=== PATIENT | male | born 1970 | race Caucasian/White ===

== ENCOUNTER 2018-02-11 07:38 | Emergency (ER) | payer OTHER ==
[~2018-02-11] VITALS: Ht 182.9 cm; Wt 102.7 kg
[2018-02-11 07:41] VITALS: BP 122/73
[2018-02-11] MEDS ORDERED: NO HOME MEDS (07:44)
[2018-02-11] MEDS ORDERED: ACYC-1 PO (08:20)
[2018-02-11] MEDS ORDERED: DOXY100C43 PO (08:20)
== END 2018-02-11 08:36 | disposition home or self-care (01) ==
LOC: ER 07:39
DX: B00.9 Herpesviral infection, unspecified (principal)
CPT/HCPCS: 99283

== ENCOUNTER 2018-02-13 03:44 | Emergency (ER) | payer OTHER ==
[~2018-02-13] VITALS: Ht 182.9 cm; Wt 103.3 kg
[~2018-02-13 03:44] MED LIST: ACYC-1 PO; DOXY100C43 PO; NO HOME MEDS
[2018-02-13] MEDS ORDERED: DOCO2CRE TP (04:59)
[2018-02-13] MEDS ORDERED: ACET-812 PO (04:59)
[2018-02-13 05:02] VITALS: BP 126/77
== END 2018-02-13 05:08 | disposition home or self-care (01) ==
LOC: ER 03:44
DX: B00.9 Herpesviral infection, unspecified (principal)
CPT/HCPCS: 99283

== ENCOUNTER 2018-04-26 14:27 | Emergency (ER) | payer MEDICAID, OTHER ==
[~2018-04-26] VITALS: Ht 182.9 cm; Wt 108.9 kg
[~2018-04-26 14:27] MED LIST changes: +DOCO2CRE TP; -DOXY100C43 PO
[2018-04-26 15:19] LABS: BASOPHILS # (AUTO) 0.1 X10'3 (0-0.2); BASOPHILS % (AUTO) 0.4 % (0-1); EOSINOPHILS # (AUTO) 0.2 X10'3 (0-0.9); EOSINOPHILS % (AUTO) 1.1 % (0-6); HEMATOCRIT 40.8 % (42.0-52.0); HEMOGLOBIN 13.9 g/dl (14.0-17.9); LYMPHOCYTES # (AUTO) 10.4 X10'3 (1.1-4.8); LYMPHOCYTES % (AUTO) 59.4 % (21-51); MEAN CORPUSCULAR HEMOGLOBIN 29.6 PG (27.0-31.0); MEAN CORPUSCULAR HGB CONC 34.1 % (33.0-36.5); MEAN CORPUSCULAR VOLUME 86.8 FL (78-98); MEAN PLATELET VOLUME 7.8 FL (7.4-10.4); MONOCYTES # (AUTO) 1.7 X10'3 (0-0.9); MONOCYTES % (AUTO) 9.6 % (2-12); NEUTROPHILS # (AUTO) 5.2 X10'3 (1.8-7.7); NEUTROPHILS % (AUTO) 29.5 % (42-75); PLATELET COUNT 234 X10'3 (140-440); RED CELL DISTRIBUTION WIDTH 14.9 % (11.5-14.5); WHITE BLOOD COUNT 17.5 X10'3 (4.5-11.0)
[2018-04-26 15:50] LABS: ALANINE AMINOTRANSFERASE 100 U/L (12-78); ALBUMIN/GLOBULIN RATIO 0.4 (1.1-1.5); ALKALINE PHOSPHATASE 196 IU/L (46-116); ANION GAP 7 (8-16); ASPARTATE AMINO TRANSFERASE 385 U/L (10-37); BILIRUBIN,TOTAL 0.3 MG/DL (0.1-1.0); BLOOD UREA NITROGEN 16 MG/DL (7-18); CALCIUM 7.5 MG/DL (8.5-10.1); CHLORIDE 103 MMOL/L (99-107); CREATININE 1.14 MG/DL (0.60-1.10); POTASSIUM 3.7 MMOL/L (3.5-5.1); SODIUM 137 MMOL/L (135-145); TOTAL PROTEIN 6.5 G/DL (6.4-8.2); eGFR 69 ML/MIN
[2018-04-26] MEDS ORDERED: vancomycin/NS 1 GM ADD-VANTAGE 250 ML IV ONE (15:50)
[2018-04-26] MEDS ORDERED: piperacillin/tazo 3.375gm/50ml 50 ML IV ONE (15:50)
[2018-04-26] MEDS ORDERED: normal saline 1000ML IV soln IV ONE (15:50)
[2018-04-26 16:01] LABS: GLUCOSE 110 MG/DL (70-104)
[2018-04-26] MEDS ORDERED: methylPREDNISolone sod succ 125mg/2ml vial IV ONE (16:35)
[2018-04-26 16:46] LABS: PLATELET ESTIMATE NORMAL; SMUDGE CELLS 2+; TOTAL CELLS COUNTED 100
[2018-04-26] MEDS ORDERED: LEVO500T89 PO (17:30)
[2018-04-26] MEDS ORDERED: PRED20TA PO (17:30)
[2018-04-26 17:49] VITALS: BP 126/76
== END 2018-04-26 17:50 | disposition home or self-care (01) ==
LOC: ER 14:28
DX: J98.4 Other disorders of lung (principal); J96.90 Respiratory failure, unspecified, unspecified whether with hypoxia or hypercapnia; J43.2 Centrilobular emphysema; J18.1 Lobar pneumonia, unspecified organism; F10.10 Alcohol abuse, uncomplicated; F15.10 Other stimulant abuse, uncomplicated; F17.200 Nicotine dependence, unspecified, uncomplicated; Z79.899 Other long term (current) drug therapy; Y90.9 Presence of alcohol in blood, level not specified
CPT/HCPCS: 36415; 71045; 71250; 80053; 83605; 83880; 84484; 85025; 87040; 93005; 93970; 99285; J7030; J2543; J2930

== ENCOUNTER 2024-05-25 09:30 | Inpatient (IN) | payer MEDICAID, OTHER ==
[~2024-05-25] VITALS: Ht 182.9 cm; Wt 119.5 kg
[~2024-05-25 09:30] MED LIST changes: +epiNEPHrine 0.1mg/ml 10ml syringe ONE; +rocuronium 10mg/ml inj IV ONE
[2024-05-25 11:14] LABS: BASOPHILS # (AUTO) 0.1 X10'3 (0-0.2); BASOPHILS % (AUTO) 0.9 % (0-1); EOSINOPHILS # (AUTO) 0.1 X10'3 (0-0.9); EOSINOPHILS % (AUTO) 0.9 % (0-6); HEMATOCRIT 49.9 % (42.0-52.0); HEMOGLOBIN 16.4 g/dl (14.0-17.9); LYMPHOCYTES # (AUTO) 1.7 X10'3 (1.1-4.8); LYMPHOCYTES % (AUTO) 19.5 % (21-51); MEAN CORPUSCULAR HEMOGLOBIN 30.7 PG (27.0-31.0); MEAN CORPUSCULAR HGB CONC 32.8 g/dL (33.0-36.5); MEAN CORPUSCULAR VOLUME 93.8 FL (78-98); MEAN PLATELET VOLUME 8.9 FL (7.4-10.4); MONOCYTES # (AUTO) 0.8 X10'3 (0-0.9); MONOCYTES % (AUTO) 9.1 % (2-12); NEUTROPHILS # (AUTO) 6.2 X10'3 (1.8-7.7); NEUTROPHILS % (AUTO) 69.6 % (42-75); PLATELET COUNT 232 X10'3 (140-440); RED BLOOD COUNT 5.32 X10'6 (4.70-6.10); RED CELL DISTRIBUTION WIDTH 16.4 % (11.5-14.5); WHITE BLOOD COUNT 8.8 X10'3 (4.5-11.0)
[2024-05-25 12:08] LABS: ALANINE AMINOTRANSFERASE 28 U/L (12-78); ALBUMIN 3.4 G/DL (3.4-5.0); ALBUMIN/GLOBULIN RATIO 0.7 (1.1-1.5); ALKALINE PHOSPHATASE 232 IU/L (46-116); ANION GAP 10 (8-16); ASPARTATE AMINO TRANSFERASE 34 U/L (10-37); BILIRUBIN,TOTAL 1.6 MG/DL (0.1-1.0); BLOOD UREA NITROGEN 14 MG/DL (7-18); BUN/CREATININE RATIO 12.1 (10.0-20.0); CHLORIDE 102 MMOL/L (99-107); CREATININE 1.16 MG/DL (0.60-1.10); GLUCOSE 103 MG/DL (70-104); POTASSIUM 4.3 MMOL/L (3.5-5.1); SODIUM 141 MMOL/L (135-145); TOTAL CARBON DIOXIDE 28.7 MMOL/L (24-32); TOTAL PROTEIN 8.4 G/DL (6.4-8.2); eCRCL 81 ML/MIN; eGFR 66 ML/MIN
[2024-05-25 12:16] LABS: PRO BRAIN NATRIURETIC PEPTIDE 2688 PG/ML (0-125)
[2024-05-25] MEDS ORDERED: iohexol 350MG/ML 100ml bottle IV ONE (13:09)
[2024-05-25] MEDS: methylPREDNISolone sod succ 125mg/2ml vial IV ONE (13:42)
[2024-05-25] MEDS: ipratropium/albuterol 3ml nebule NEB ONE (14:28)
[2024-05-25 14:29] VITALS: PULSE 127; RESP 22; O2SAT 95
[2024-05-25 14:35] VITALS: PULSE 127; RESP 20; O2SAT 96
[2024-05-25] MEDS: diltiazem 5mg/ml 5ml inj. IV STA (14:47)
[2024-05-25] MEDS: diltiazem 5mg/ml 5ml inj. IV ONE (15:13)
[2024-05-25] MEDS ORDERED: potassium Cl 40MEQ/1/2NS 520ml 520 ML IV PRN (16:40)
[2024-05-25] MEDS ORDERED: acetaminophen 325mg tablet PO PRN (16:40)
[2024-05-25] MEDS ORDERED: magnesium sulf-water 4G/100mL 100 ML IV PRN (16:40)
[2024-05-25] MEDS ORDERED: magnesium hydroxide 30ml (MOM) UD suspension PO PRN (16:40)
[2024-05-25] MEDS ORDERED: magnesium sulf-water 2g/50mL 50 ML IV PRN (16:40)
[2024-05-25] MEDS ORDERED: mag hydrox/Alum hydrox/simeth 30ml oral suspension PO PRN (16:40)
[2024-05-25] MEDS ORDERED: ondansetron/PF 4mg/2ml inj IV PRN (16:40)
[2024-05-25] MEDS: nicotine 14mg patch - 24hr TD SCH (18:33)
[2024-05-25] MEDS: budesonide 0.5mg/2ml UD nebule IH SCH (19:19)
[2024-05-25] MEDS: albuterol 2.5 MG/3 ML nebule NEB PRN (19:20)
[2024-05-25 19:22] VITALS: PULSE 122; RESP 18; O2SAT 93
[2024-05-25 19:30] VITALS: PULSE 120; RESP 16
[2024-05-25 21:00] VITALS: BP 121/83; PULSE 117; RESP 22; TEMP 96.7; O2SAT 94
[2024-05-25] MEDS: K and/or MAG REPLACEMENT MC SCH (21:30)
[2024-05-25] MEDS: apixaban 5mg tablet PO SCH (21:53)
[2024-05-25] MEDS: docusate sod 100mg capsule PO SCH (21:53)
[2024-05-26] VITALS (27 sets, daily range): BP systolic 79–128; BP diastolic 49–92; PULSE 100–123; RESP 16–23; TEMP 97.6–99.9; O2SAT 87–100
[2024-05-26] MEDS: ipratropium/albuterol 3ml nebule NEB PRN (02:56)
[2024-05-26 08:00] LABS: BASOPHILS % (AUTO) 0.1 % (0-1); EOSINOPHILS % (AUTO) 0 % (0-6); HEMATOCRIT 52.4 % (42.0-52.0); HEMOGLOBIN 17.1 g/dl (14.0-17.9); LYMPHOCYTES # (AUTO) 0.9 X10'3 (1.1-4.8); LYMPHOCYTES % (AUTO) 10.1 % (21-51); MEAN CORPUSCULAR HEMOGLOBIN 30.6 PG (27.0-31.0); MEAN CORPUSCULAR HGB CONC 32.6 g/dL (33.0-36.5); MEAN CORPUSCULAR VOLUME 93.8 FL (78-98); MEAN PLATELET VOLUME 8.5 FL (7.4-10.4); MONOCYTES # (AUTO) 0.2 X10'3 (0-0.9); MONOCYTES % (AUTO) 2.5 % (2-12); NEUTROPHILS # (AUTO) 7.8 X10'3 (1.8-7.7); NEUTROPHILS % (AUTO) 87.3 % (42-75); PLATELET COUNT 224 X10'3 (140-440); RED BLOOD COUNT 5.59 X10'6 (4.70-6.10); RED CELL DISTRIBUTION WIDTH 16.5 % (11.5-14.5); WHITE BLOOD COUNT 8.9 X10'3 (4.5-11.0)
[2024-05-26 08:13] LABS: INR 1.3 INR; PROTHROMBIN TIME 13.5 SECONDS (9.0-12.0)
[2024-05-26 08:17] LABS: ALANINE AMINOTRANSFERASE 27 U/L (12-78); ALBUMIN 3.1 G/DL (3.4-5.0); ALBUMIN/GLOBULIN RATIO 0.7 (1.1-1.5); ALKALINE PHOSPHATASE 197 IU/L (46-116); ANION GAP 10 (8-16); ASPARTATE AMINO TRANSFERASE 23 U/L (10-37); BILIRUBIN,TOTAL 1.3 MG/DL (0.1-1.0); BLOOD UREA NITROGEN 18 MG/DL (7-18); BUN/CREATININE RATIO 15.5 (10.0-20.0); CHLORIDE 102 MMOL/L (99-107); CREATININE 1.16 MG/DL (0.60-1.10); GLUCOSE 141 MG/DL (70-104); MAGNESIUM 1.9 MG/DL (1.5-2.4); PHOSPHORUS 4.1 MG/DL (2.3-4.5); POTASSIUM 4.5 MMOL/L (3.5-5.1); SODIUM 139 MMOL/L (135-145); TOTAL CARBON DIOXIDE 27.1 MMOL/L (24-32); TOTAL PROTEIN 7.8 G/DL (6.4-8.2); eCRCL 81 ML/MIN; eGFR 66 ML/MIN
[2024-05-26] MEDS: metoprolol tartrate 50mg tablet PO ONE (09:07)
[2024-05-26] MEDS: metoprolol tartrate 1mg/ml inj IV ONE (10:54)
[2024-05-26] MEDS: amiodarone 150mg/dext, iso-os 100 ML IV ONE (13:46)
[2024-05-26] MEDS: DOPamine 400mg/D5W 250ml 250 ML IV SCH (13:54)
[2024-05-26] MEDS: amiodarone/D5 360MG/200ML BAG 200 ML IV SCH (13:57)
[2024-05-26] MEDS: carvedilol 6.25mg tablet PO SCH (20:00)
[2024-05-26] MEDS: sacubitril/valsartan 24mg-26mg tablet PO SCH (21:29)
[2024-05-27] VITALS (44 sets, daily range): BP systolic 54–133; BP diastolic 25–107; PULSE 62–122; RESP 15–55; TEMP 94.8–97.6; O2SAT 78–100
[2024-05-27] MEDS: furosemide 20 MG/2 ML vial IV ONE (00:25)
[2024-05-27] MEDS: morphine 2 MG/ML inj. syringe IV ONE (06:00)
[2024-05-27 07:08] LABS: BASOPHILS % (AUTO) 0 % (0-1); EOSINOPHILS % (AUTO) 0 % (0-6); HEMATOCRIT 54.6 % (42.0-52.0); HEMOGLOBIN 17.5 g/dl (14.0-17.9); LYMPHOCYTES % (AUTO) 8.6 % (21-51); MEAN CORPUSCULAR HEMOGLOBIN 30.7 PG (27.0-31.0); MEAN CORPUSCULAR VOLUME 95.9 FL (78-98); MEAN PLATELET VOLUME 8.7 FL (7.4-10.4); MONOCYTES # (AUTO) 1.7 X10'3 (0-0.9); MONOCYTES % (AUTO) 7.3 % (2-12); NEUTROPHILS # (AUTO) 19.9 X10'3 (1.8-7.7); NEUTROPHILS % (AUTO) 84.1 % (42-75); PLATELET COUNT 231 X10'3 (140-440); WHITE BLOOD COUNT 23.6 X10'3 (4.5-11.0)
[2024-05-27 07:20] LABS: INR 1.8 INR; PROTHROMBIN TIME 17.7 SECONDS (9.0-12.0)
[2024-05-27 07:28] LABS: ALANINE AMINOTRANSFERASE 44 U/L (12-78); ALBUMIN 2.9 G/DL (3.4-5.0); ALBUMIN/GLOBULIN RATIO 0.6 (1.1-1.5); ALKALINE PHOSPHATASE 189 IU/L (46-116); ANION GAP 12 (8-16); ASPARTATE AMINO TRANSFERASE 58 U/L (10-37); BILIRUBIN,TOTAL 1.4 MG/DL (0.1-1.0); BLOOD UREA NITROGEN 31 MG/DL (7-18); BUN/CREATININE RATIO 25.2 (10.0-20.0); CALCIUM 9.2 MG/DL (8.5-10.1); CHLORIDE 100 MMOL/L (99-107); CREATININE 1.23 MG/DL (0.60-1.10); GLUCOSE 96 MG/DL (70-104); MAGNESIUM 2.3 MG/DL (1.5-2.4); PHOSPHORUS 4.9 MG/DL (2.3-4.5); POTASSIUM 5.6 MMOL/L (3.5-5.1); PRO BRAIN NATRIURETIC PEPTIDE 2759 PG/ML (0-125); SODIUM 130 MMOL/L (135-145); TOTAL CARBON DIOXIDE 17.6 MMOL/L (24-32); TOTAL PROTEIN 7.6 G/DL (6.4-8.2); eCRCL 76 ML/MIN; eGFR 62 ML/MIN
[2024-05-27] MEDS: methylPREDNISolone sod succ/PF 40mg inj. IV SCH (08:05)
[2024-05-27] MEDS: DOBUTamine-DoBUTrex 500mg/D5W 250 ML IV SCH (08:05)
[2024-05-27] MEDS ORDERED: spironolactone 25 MG tablet PO SCH (08:30)
[2024-05-27] MEDS: DAPAGLIFLOZIN 10MG TABLET PO SCH (08:54)
[2024-05-27] MEDS: morphine 10mg/0.5ml (conc. morphine) oral syringe PO PRN (09:10)
[2024-05-27 10:02] LABS: ABG BASE EXCESS -6.2 mmol/L (-2.0-2.0); ABG HCO3 17.6 mmol/L (22.0-26.0); ABG OXYGEN SATURATION 91.8 % (94-97); ABG PCO2 (T) 30.1 mmHg (35.0-48.0); ABG PO2 (T) 63.1 mmHg (75.0-100.0); ALLEN'S TEST POSITIVE; FCOHb 0.1 % (0.0-3.9); FHHb 8.2 % (0.0-5.0); FLOW 2 L/min; FMetHb 0.1 % (0.0-1.5); FO2Hb 91.6 % (94-97); MODE NASAL CANNULA; PATIENT TEMPERATURE 36.1; TOTAL HEMOGLOBIN 18.8 G/dl (14.0-17.9)
[2024-05-27] MEDS ORDERED: furosemide 40mg/4ml inj IV STA (10:33)
[2024-05-27] MEDS: furosemide 40mg/4ml inj IV ONE ×2 (10:42→11:17)
[2024-05-27] MEDS: LORazepam 1 MG tablet PO PRN (10:42)
[2024-05-27] MEDS: HYDROmorphone 1 mg/ml syringe IV ONE ×2 (11:54→12:48)
[2024-05-27] MEDS ORDERED: DEXMEDETOMIDINE IN 0.9 % NACL 50 ML IV SCH (12:15)
[2024-05-27 12:54] LABS: BASOPHILS % (AUTO) 0.2 % (0-1); EOSINOPHILS % (AUTO) 0.1 % (0-6); HEMATOCRIT 56.1 % (42.0-52.0); LYMPHOCYTES # (AUTO) 2.2 X10'3 (1.1-4.8); LYMPHOCYTES % (AUTO) 10.4 % (21-51); MEAN CORPUSCULAR HEMOGLOBIN 30.7 PG (27.0-31.0); MEAN CORPUSCULAR HGB CONC 32.4 g/dL (33.0-36.5); MEAN CORPUSCULAR VOLUME 94.8 FL (78-98); MEAN PLATELET VOLUME 8.8 FL (7.4-10.4); MONOCYTES # (AUTO) 0.9 X10'3 (0-0.9); MONOCYTES % (AUTO) 4.2 % (2-12); NEUTROPHILS # (AUTO) 18.1 X10'3 (1.8-7.7); NEUTROPHILS % (AUTO) 85.1 % (42-75); PLATELET COUNT 255 X10'3 (140-440); RED BLOOD COUNT 5.92 X10'6 (4.70-6.10); RED CELL DISTRIBUTION WIDTH 17.2 % (11.5-14.5); WHITE BLOOD COUNT 21.2 X10'3 (4.5-11.0)
[2024-05-27 12:55] LABS: HEMOGLOBIN 18.2 g/dl (14.0-17.9)
[2024-05-27 12:59] LABS: ABG BASE EXCESS -8.6 mmol/L (-2.0-2.0); ABG HCO3 17.3 mmol/L (22.0-26.0); ABG OXYGEN SATURATION 99.6 % (94-97); ABG PCO2 (T) 34.6 mmHg (35.0-48.0); ABG PH (T) 7.307 (7.340-7.440); ABG PO2 (T) 222.8 mmHg (75.0-100.0); ALLEN'S TEST POSITIVE; FCOHb 0.3 % (0.0-3.9); FHHb 0.4 % (0.0-5.0); FMetHb 0.4 % (0.0-1.5); FO2Hb 98.9 % (94-97); MODE MASK - BIPAP; PATIENT TEMPERATURE 34.9; RESPIRATORY RATE 16 b/min; TIDAL VOLUME 365 mL; TOTAL HEMOGLOBIN 19.9 G/dl (14.0-17.9)
[2024-05-27] MEDS: dexmedetomidin/NS 400mcg/100ml 100 ML IV SCH (13:05)
[2024-05-27] MEDS: ringers solution, lacted 1,000 ML IV ONE (13:39)
[2024-05-27 13:44] LABS: ANISOCYTOSIS 1+; PLATELET ESTIMATE NORMAL; TOTAL CELLS COUNTED 100
[2024-05-27 13:46] LABS: INR 2.3 INR; PROTHROMBIN TIME 22.9 SECONDS (9.0-12.0)
[2024-05-27] MEDS: NORepinephrine 8mg/ 250ml NS 250 ML IV ONE (14:12)
[2024-05-27] MEDS: fentaNYL/PF 50MCG/1 ML 2ML syringe ONE (14:29)
[2024-05-27] MEDS: fentaNYL/PF 50MCG/1 ML 2ML syringe IV ONE (14:30)
[2024-05-27] MEDS ORDERED: vasopressin inj. 40 UNIT in dextrose 5%-water 50ml 38 ML IV SCH (15:10)
[2024-05-27] MEDS: vasopressin inj. 40 UNIT in normal saline 50ml IV soln 38 ML IV SCH (15:38)
[2024-05-27 15:42] LABS: ALANINE AMINOTRANSFERASE 121 U/L (12-78); ALBUMIN 2.8 G/DL (3.4-5.0); ALBUMIN/GLOBULIN RATIO 0.7 (1.1-1.5); ALKALINE PHOSPHATASE 179 IU/L (46-116); ANION GAP 11 (8-16); ASPARTATE AMINO TRANSFERASE 227 U/L (10-37); BILIRUBIN,TOTAL 2.1 MG/DL (0.1-1.0); BLOOD UREA NITROGEN 36 MG/DL (7-18); BUN/CREATININE RATIO 20.5 (10.0-20.0); CALCIUM 8.7 MG/DL (8.5-10.1); CHLORIDE 100 MMOL/L (99-107); CREATININE 1.76 MG/DL (0.60-1.10); PHOSPHORUS 7.1 MG/DL (2.3-4.5); SODIUM 135 MMOL/L (135-145); TOTAL CARBON DIOXIDE 23.8 MMOL/L (24-32); TOTAL PROTEIN 6.8 G/DL (6.4-8.2); eCRCL 53 ML/MIN; eGFR 41 ML/MIN
[2024-05-27 15:44] LABS: GLUCOSE 41 MG/DL (70-104); POTASSIUM 7.1 MMOL/L (3.5-5.1)
[2024-05-27 15:57] LABS: ABG BASE EXCESS -4.9 mmol/L (-2.0-2.0); ABG HCO3 21.5 mmol/L (22.0-26.0); ABG OXYGEN SATURATION 97.9 % (94-97); ABG PCO2 (T) 40.5 mmHg (35.0-48.0); ABG PH (T) 7.332 (7.340-7.440); FCOHb 0.3 % (0.0-3.9); FHHb 2.1 % (0.0-5.0); FMetHb 0.3 % (0.0-1.5); FO2Hb 97.3 % (94-97); MODE VENT - AC; PEEP 5 cm H2O; RESPIRATORY RATE 16 b/min; TIDAL VOLUME 500 mL; TOTAL HEMOGLOBIN 18.7 G/dl (14.0-17.9)
[2024-05-27] MEDS ORDERED: fentaNYL/PF 50MCG/1 ML 2ML syringe IV PRN (16:00)
[2024-05-27] MEDS: FENTANYL-0.9 % NACL/PF 100 ML IV SCH (16:00)
[2024-05-27] MEDS: sodium bicarbonate (8.4%) 1 mEq/ml syringe IV ONE (16:05)
[2024-05-27] MEDS: sodium bicarbonate 1meq/ml inj 150 ML in dextrose 5%-water 1,000 ML IV SCH (16:05)
[2024-05-27] MEDS: epiNEPHrine 0.1mg/ml 10ml syringe ONE (16:06)
[2024-05-27] MEDS: NORepinephrine 8mg/ 250ml NS 250 ML IV SCH (16:11)
[2024-05-27] MEDS: sodium bicarbonate (8.4%) 1 mEq/ml syringe ONE (16:12)
[2024-05-27] MEDS: dextrose 50%-water 50ml dispensing syringe IV ONE ×2 (16:13→16:31)
[2024-05-27] MEDS: insulin regular, human U-100 3ml vial - multi-dose IV STA (16:30)
[2024-05-27] MEDS: SODIUM ZIRCONIUM CYCLOSILICATE 10 GM POWD.PACK OGT STA (16:30)
[2024-05-27] MEDS: propofol 1000mg/100ml bottle 100 ML IV SCH (16:36)
[2024-05-27] MEDS ORDERED: vancomycin/NS 1 GM ADD-VANTAGE 250 ML IV ONE (17:10)
[2024-05-27] MEDS ORDERED: vancomycin 1,750 MG in NS 350ml IV soln IV ONE (17:25)
[2024-05-27 17:27] LABS: ALBUMIN 2.4 G/DL (3.4-5.0); ANION GAP 12 (8-16); BLOOD UREA NITROGEN 38 MG/DL (7-18); BUN/CREATININE RATIO 20.9 (10.0-20.0); CHLORIDE 100 MMOL/L (99-107); CREATININE 1.82 MG/DL (0.60-1.10); GLUCOSE 244 MG/DL (70-104); SODIUM 136 MMOL/L (135-145); TOTAL CARBON DIOXIDE 24.2 MMOL/L (24-32); eCRCL 52 ML/MIN; eGFR 39 ML/MIN
[2024-05-27] MEDS: piperacillin/tazo 3.375gm/50ml 50 ML IV SCH (17:40)
[2024-05-27] MEDS: pantoprazole 40 MG vial IV SCH (17:40)
[2024-05-27] MEDS ORDERED: NORepinephrine 32mg/250mL bag 250 ML IV SCH (19:00)
[2024-05-27] MEDS: vancomycin 1,750 MG in NS 350ml IV soln IV ONE (19:16)
[2024-05-27] MEDS: furosemide inj 100 MG in normal saline 100ml IV soln 90 ML IV SCH (19:17)
[2024-05-27] MEDS: NORepinephrine 32 MG in normal saline 250ml IV soln 218 ML IV SCH (20:55)
[2024-05-27 22:49] LABS: ALBUMIN 2.7 G/DL (3.4-5.0); ANION GAP 10 (8-16); BLOOD UREA NITROGEN 39 MG/DL (7-18); BUN/CREATININE RATIO 22.9 (10.0-20.0); CALCIUM 8.4 MG/DL (8.5-10.1); CHLORIDE 99 MMOL/L (99-107); GLUCOSE 189 MG/DL (70-104); MAGNESIUM 1.6 MG/DL (1.5-2.4); PHOSPHORUS 5.4 MG/DL (2.3-4.5); SODIUM 136 MMOL/L (135-145); TOTAL CARBON DIOXIDE 27.2 MMOL/L (24-32); eCRCL 55 ML/MIN; eGFR 42 ML/MIN
[2024-05-27] MEDS ORDERED: glucagon, human recombinant 1mg kit SUBCUT PRN (22:55)
[2024-05-27] MEDS ORDERED: DEXTROSE 15 GM of carb/4 tabs (each vial/BOTTLE has 4 tablets) PO PRN ×2 (22:55)
[2024-05-27] MEDS ORDERED: dextrose 50%-water 50ml dispensing syringe IV PRN ×2 (22:55)
[2024-05-28] VITALS (37 sets, daily range): BP systolic 87–123; BP diastolic 59–85; PULSE 110–124; RESP 16–30; O2SAT 89–96
[2024-05-28] MEDS: INSULIN LISPRO 100 UNIT/ML INSULN.PEN MULTI-DOSE SQ SCH (02:01)
[2024-05-28 02:20] LABS: BASOPHILS % (AUTO) 0.1 % (0-1); EOSINOPHILS % (AUTO) 0 % (0-6); HEMATOCRIT 50.6 % (42.0-52.0); HEMOGLOBIN 16.2 g/dl (14.0-17.9); LYMPHOCYTES # (AUTO) 0.9 X10'3 (1.1-4.8); LYMPHOCYTES % (AUTO) 4.6 % (21-51); MEAN CORPUSCULAR HEMOGLOBIN 29.8 PG (27.0-31.0); MEAN CORPUSCULAR HGB CONC 32.1 g/dL (33.0-36.5); MEAN CORPUSCULAR VOLUME 92.9 FL (78-98); MONOCYTES % (AUTO) 4.9 % (2-12); NEUTROPHILS # (AUTO) 18.7 X10'3 (1.8-7.7); NEUTROPHILS % (AUTO) 90.4 % (42-75); PLATELET COUNT 259 X10'3 (140-440); RED BLOOD COUNT 5.44 X10'6 (4.70-6.10); RED CELL DISTRIBUTION WIDTH 16.5 % (11.5-14.5); WHITE BLOOD COUNT 20.7 X10'3 (4.5-11.0)
[2024-05-28 02:56] LABS: ALANINE AMINOTRANSFERASE 726 U/L (12-78); ALBUMIN 2.6 G/DL (3.4-5.0); ALBUMIN/GLOBULIN RATIO 0.7 (1.1-1.5); ALKALINE PHOSPHATASE 159 IU/L (46-116); ANION GAP 10 (8-16); BILIRUBIN,TOTAL 1.9 MG/DL (0.1-1.0); BLOOD UREA NITROGEN 39 MG/DL (7-18); BUN/CREATININE RATIO 22.3 (10.0-20.0); CALCIUM 8.4 MG/DL (8.5-10.1); CHLORIDE 99 MMOL/L (99-107); CREATININE 1.75 MG/DL (0.60-1.10); GLUCOSE 175 MG/DL (70-104); MAGNESIUM 1.7 MG/DL (1.5-2.4); PHOSPHORUS 5.1 MG/DL (2.3-4.5); SODIUM 137 MMOL/L (135-145); TOTAL CARBON DIOXIDE 28.2 MMOL/L (24-32); TOTAL PROTEIN 6.3 G/DL (6.4-8.2); TRIGLYCERIDES 76 MG/DL (20-135); eCRCL 54 ML/MIN; eGFR 41 ML/MIN
[2024-05-28 02:58] LABS: ASPARTATE AMINO TRANSFERASE 1518 U/L (10-37)
[2024-05-28 03:13] LABS: ABG BASE EXCESS 4.7 mmol/L (-2.0-2.0); ABG HCO3 29.1 mmol/L (22.0-26.0); ABG OXYGEN SATURATION 93.7 % (94-97); ABG PCO2 (T) 43.3 mmHg (35.0-48.0); ABG PH (T) 7.448 (7.340-7.440); FCOHb 0.5 % (0.0-3.9); FHHb 6.3 % (0.0-5.0); FO2Hb 93.2 % (94-97); MODE ac/prvc; PATIENT TEMPERATURE 37.7; PEEP 5 cm H2O; RESPIRATORY RATE 16 b/min; TIDAL VOLUME 500 mL; TOTAL HEMOGLOBIN 17.6 G/dl (14.0-17.9)
[2024-05-28] MEDS: vancomycin/NS 1 GM ADD-VANTAGE 250 ML IV SCH (05:22)
[2024-05-28 05:52] LABS: ALBUMIN 2.7 G/DL (3.4-5.0); ANION GAP 11 (8-16); BLOOD UREA NITROGEN 39 MG/DL (7-18); BUN/CREATININE RATIO 22.8 (10.0-20.0); CALCIUM 8.4 MG/DL (8.5-10.1); CHLORIDE 98 MMOL/L (99-107); CREATININE 1.71 MG/DL (0.60-1.10); GLUCOSE 162 MG/DL (70-104); MAGNESIUM 1.7 MG/DL (1.5-2.4); PHOSPHORUS 5.2 MG/DL (2.3-4.5); POTASSIUM 4.8 MMOL/L (3.5-5.1); SODIUM 137 MMOL/L (135-145); TOTAL CARBON DIOXIDE 28.5 MMOL/L (24-32); eCRCL 55 ML/MIN; eGFR 42 ML/MIN
[2024-05-28] MEDS ORDERED: NORepinephrine 8mg/ 250ml NS 250 ML IV SCH (06:45)
[2024-05-28] MEDS ORDERED: NORepinephrine 32mg/250mL bag 250 ML IV SCH (06:50)
[2024-05-28] MEDS ORDERED: INSULIN LISPRO 100 UNIT/ML INSULN.PEN MULTI-DOSE SQ SCH (07:00)
[2024-05-28] MEDS: docusate sodium 100mg/10ml UD cup PO SCH (07:56)
[2024-05-28] MEDS: NORepinephrine 32 MG in normal saline 250ml IV soln 218 ML IV SCH (10:18)
[2024-05-28] MEDS: DOBUTamine-DoBUTrex 500mg/D5W 250 ML IV SCH (10:18)
[2024-05-28] MEDS ORDERED: acetaminophen 325mg tablet OGT PRN (10:21)
[2024-05-28] MEDS ORDERED: apixaban 5mg tablet OGT SCH (10:22)
[2024-05-28] MEDS ORDERED: DEXTROSE 15 GM of carb/4 tabs (each vial/BOTTLE has 4 tablets) OGT PRN ×2 (10:22)
[2024-05-28] MEDS ORDERED: magnesium hydroxide 30ml (MOM) UD suspension OGT PRN (10:26)
[2024-05-28] MEDS ORDERED: LORazepam 1 MG tablet OGT PRN (10:26)
[2024-05-28] MEDS ORDERED: mag hydrox/Alum hydrox/simeth 30ml oral suspension OGT PRN (10:26)
[2024-05-28] MEDS ORDERED: morphine 10mg/0.5ml (conc. morphine) oral syringe OGT PRN (10:27)
[2024-05-28 10:28] LABS: BILIRUBIN,URINE NEGATIVE (Neg); CLARITY,URINE SLIGHTLY CLOUDY (Clear); COLOR,URINE YELLOW (Yellow); GLUCOSE, URINE 100 mg/dl (Neg); KETONES,URINE NEGATIVE (Neg); LEUKOCYTE ESTERASE ,URINE NEGATIVE (Neg); NITRITES, URINE NEGATIVE (Neg); OCCULT BLOOD,URINE MODERATE (Neg); PH,URINE 5.5 (4.8-8.0); PROTEIN,URINE NEGATIVE (Neg); UROBILINOGEN,URINE 0.2 E.U/dL (0.2-1.0)
[2024-05-28 10:30] LABS: UA COLLECTION TYPE NON-SPECIFIED
[2024-05-28 10:34] LABS: RBC,URINE 20-50 /HPF (0-2); WBC,URINE 0-4 /HPF (0-4)
[2024-05-28 10:35] LABS: BACTERIA,URINE FEW /HPF (Neg); SQUAMOUS EPITHELIAL CELL,UR FEW /LPF (FEW)
[2024-05-28 10:38] LABS: ALBUMIN 2.7 G/DL (3.4-5.0); ANION GAP 9 (8-16); BLOOD UREA NITROGEN 43 MG/DL (7-18); BUN/CREATININE RATIO 23.9 (10.0-20.0); CALCIUM 8.4 MG/DL (8.5-10.1); CHLORIDE 98 MMOL/L (99-107); GLUCOSE 167 MG/DL (70-104); MAGNESIUM 1.7 MG/DL (1.5-2.4); POTASSIUM 4.6 MMOL/L (3.5-5.1); SODIUM 136 MMOL/L (135-145); TOTAL CARBON DIOXIDE 29.1 MMOL/L (24-32); eCRCL 52 ML/MIN; eGFR 40 ML/MIN
[2024-05-28 10:56] LABS: URINE AMPHETAMINE SCREEN NEGATIVE (Neg); URINE BARBITUATE SCREEN NEGATIVE (Neg); URINE BENZODIAZEPINES SCREEN NEGATIVE (Neg); URINE CANNABINOID SCREEN POSITIVE (Neg); URINE COCAINE SCREEN NEGATIVE (Neg); URINE METHADONE SCREEN NEGATIVE (Neg); URINE OPIATE SCREEN POSITIVE (Neg); URINE PHENCYCLIDINE SCREEN NEGATIVE (Neg)
[2024-05-28 11:14] LABS: PHOSPHORUS 5.8 MG/DL (2.3-4.5)
[2024-05-28 14:12] LABS: PREALBUMIN 13.2 MG/DL (19-36)
[2024-05-28] MEDS: carvedilol 6.25mg tablet OGT SCH (20:00)
[2024-05-28] MEDS: mineral oil/petrolatum ophthal oint EACHEYE SCH (20:55)
[2024-05-28] MEDS: docusate sodium 100mg/10ml UD cup OGT SCH (20:55)
[2024-05-29] VITALS (26 sets, daily range): BP systolic 46–104; BP diastolic 28–72; PULSE 26–121; RESP 8–22; O2SAT 72–93
[2024-05-29] MEDS: insulin regular, human U-100 3ml vial - multi-dose SQ SCH (02:19)
[2024-05-29 03:10] LABS: ABG BASE EXCESS 6.1 mmol/L (-2.0-2.0); ABG HCO3 31.1 mmol/L (22.0-26.0); ABG OXYGEN SATURATION 91.4 % (94-97); ABG PH (T) 7.449 (7.340-7.440); FCOHb 0.5 % (0.0-3.9); FHHb 8.5 % (0.0-5.0); FMetHb 0.1 % (0.0-1.5); FO2Hb 90.9 % (94-97); MODE ac/prvc; PATIENT TEMPERATURE 37.4; PEEP 8 cm H2O; RESPIRATORY RATE 16 b/min; TIDAL VOLUME 500 mL; TOTAL HEMOGLOBIN 17.5 G/dl (14.0-17.9)
[2024-05-29 04:03] LABS: BASOPHILS % (AUTO) 0.2 % (0-1); EOSINOPHILS % (AUTO) 0 % (0-6); HEMATOCRIT 50.8 % (42.0-52.0); HEMOGLOBIN 16.2 g/dl (14.0-17.9); LYMPHOCYTES # (AUTO) 1.2 X10'3 (1.1-4.8); LYMPHOCYTES % (AUTO) 5.8 % (21-51); MEAN CORPUSCULAR HEMOGLOBIN 29.6 PG (27.0-31.0); MEAN CORPUSCULAR VOLUME 92.6 FL (78-98); MEAN PLATELET VOLUME 8.8 FL (7.4-10.4); MONOCYTES # (AUTO) 1.2 X10'3 (0-0.9); MONOCYTES % (AUTO) 5.8 % (2-12); NEUTROPHILS # (AUTO) 17.7 X10'3 (1.8-7.7); NEUTROPHILS % (AUTO) 88.2 % (42-75); PLATELET COUNT 243 X10'3 (140-440); RED BLOOD COUNT 5.48 X10'6 (4.70-6.10); RED CELL DISTRIBUTION WIDTH 16.4 % (11.5-14.5); WHITE BLOOD COUNT 20.1 X10'3 (4.5-11.0)
[2024-05-29 04:06] LABS: INR 1.7 INR; PROTHROMBIN TIME 17.5 SECONDS (9.0-12.0)
[2024-05-29 04:10] LABS: ALANINE AMINOTRANSFERASE 615 U/L (12-78); ALBUMIN 2.7 G/DL (3.4-5.0); ALBUMIN/GLOBULIN RATIO 0.7 (1.1-1.5); ALKALINE PHOSPHATASE 150 IU/L (46-116); ANION GAP 7 (8-16); ASPARTATE AMINO TRANSFERASE 554 U/L (10-37); BILIRUBIN,TOTAL 1.6 MG/DL (0.1-1.0); BLOOD UREA NITROGEN 53 MG/DL (7-18); BUN/CREATININE RATIO 27.6 (10.0-20.0); CALCIUM 8.2 MG/DL (8.5-10.1); CHLORIDE 98 MMOL/L (99-107); CREATININE 1.92 MG/DL (0.60-1.10); GLUCOSE 170 MG/DL (70-104); MAGNESIUM 1.9 MG/DL (1.5-2.4); PHOSPHORUS 5.7 MG/DL (2.3-4.5); POTASSIUM 4.4 MMOL/L (3.5-5.1); SODIUM 136 MMOL/L (135-145); TOTAL CARBON DIOXIDE 30.7 MMOL/L (24-32); TOTAL PROTEIN 6.6 G/DL (6.4-8.2); eCRCL 49 ML/MIN; eGFR 37 ML/MIN
[2024-05-29] MEDS: apixaban 5mg tablet PO SCH (07:12)
[2024-05-29] MEDS: amiodarone 200mg tablet PO SCH (07:12)
[2024-05-29] MEDS: furosemide 40mg/4ml inj IV SCH (07:12)
[2024-05-29 07:25] LABS: PO2 MIXED VENOUS (TEMP COR) 33.2 mmHg (35-46)
[2024-05-29] MEDS: COMMUNICATION ORDER 1 EA MISC MC ONE (08:22)
[2024-05-29] MEDS ORDERED: apixaban 5mg tablet OGT SCH (13:46)
[2024-05-29] MEDS ORDERED: amiodarone 200mg tablet OGT SCH (13:46)
[2024-05-29] MEDS: morphine 10mg/ml inj. IV PRN (14:36)
[2024-05-29] MEDS ORDERED: morphine 10mg/ml inj. IV PRN (15:50)
[2024-05-29] MEDS: LORazepam 2 mg/ml vial IV PRN (15:50)
== END 2024-05-29 19:13 | DRG 720 ==
LOC: ER 09:32 → UNDOADMIN 17:14 → ED HOLD 17:14 → PCU 3S 20:53 → ED HOLD 20:53 → PCU 3S 05-27 12:05 → CICU 2S 05-27 12:05
PROVIDERS: ADMIT Family Medicine; ATTEND Family Medicine
PROC: B32T1ZZ Computerized Tomography (CT Scan) of Left Pulmonary Artery using Low Osmolar Contrast (ICD-10-PCS; principal; 2024-05-25)
PROC: B3201ZZ Computerized Tomography (CT Scan) of Thoracic Aorta using Low Osmolar Contrast (ICD-10-PCS; 2024-05-25)
PROC: B32S1ZZ Computerized Tomography (CT Scan) of Right Pulmonary Artery using Low Osmolar Contrast (ICD-10-PCS; 2024-05-25)
PROC: 5A09357 Assistance with Respiratory Ventilation, Less than 24 Consecutive Hours, Continuous Positive Airway Pressure (ICD-10-PCS; 2024-05-27)
PROC: 0BH17EZ Insertion of Endotracheal Airway into Trachea, Via Natural or Artificial Opening (ICD-10-PCS; 2024-05-27)
PROC: 5A1945Z Respiratory Ventilation, 24-96 Consecutive Hours (ICD-10-PCS; 2024-05-27)
PROC: 02HV33Z Insertion of Infusion Device into Superior Vena Cava, Percutaneous Approach (ICD-10-PCS; 2024-05-27)
PROC: B548ZZA Ultrasonography of Superior Vena Cava, Guidance (ICD-10-PCS; 2024-05-27)
PROC: 04HY32Z Insertion of Monitoring Device into Lower Artery, Percutaneous Approach (ICD-10-PCS; 2024-05-27)
DX: A41.9 Sepsis, unspecified organism (principal); N17.0 Acute kidney failure with tubular necrosis; J96.21 Acute and chronic respiratory failure with hypoxia; R57.0 Cardiogenic shock; R65.21 Severe sepsis with septic shock; I50.23 Acute on chronic systolic (congestive) heart failure; D68.9 Coagulation defect, unspecified; E87.1 Hypo-osmolality and hyponatremia; I42.0 Dilated cardiomyopathy; J44.1 Chronic obstructive pulmonary disease with (acute) exacerbation; E66.9 Obesity, unspecified; E87.5 Hyperkalemia; F17.210 Nicotine dependence, cigarettes, uncomplicated; F10.10 Alcohol abuse, uncomplicated; I48.92 Unspecified atrial flutter; I42.7 Cardiomyopathy due to drug and external agent; D75.1 Secondary polycythemia; I48.91 Unspecified atrial fibrillation; K70.30 Alcoholic cirrhosis of liver without ascites; Z66 Do not resuscitate; E16.2 Hypoglycemia, unspecified; N18.9 Chronic kidney disease, unspecified; J43.9 Emphysema, unspecified; Z80.0 Family history of malignant neoplasm of digestive organs; Z79.01 Long term (current) use of anticoagulants; Z68.35 Body mass index [BMI] 35.0-35.9, adult; Z51.5 Encounter for palliative care; Z71.6 Tobacco abuse counseling; Z99.11 Dependence on respirator [ventilator] status
CPT/HCPCS: 36415; 36600; 71045; 71275; 80048; 80053; 80069; 80305; 81001; 82800; 82803; 82810; 82948; 83605; 83735; 83880; 84100; 84134; 84145; 84478; 84484; 85007; 85018; 85025; 85610; 87040; 87070; 87077; 87081; 87185; 93005; 93306; 94002; 94003; 94640; 94660; 94760; 94799; 96374; 99285; A4333; A4615; A4620; A6213; A6258; A6449; A7015; C1751; C1894; G0378; J0171; J0282; J1170; J1250; J1265; J1815; J1940; J2060; J2270; J2274; J2470; J2543; J2704; J2919; J3010; J3370; J3490; J7030; J7040; J7050; J7070; J7120; Q9967